=== PATIENT | female | born 1980 | race African-American/Black ===

== ENCOUNTER 2016-08-21 18:58 | Emergency (ER) | payer MEDICAID ==
[2016-08-21 18:48] LABS: URINE SOURCE CLEAN CATCH
[2016-08-21 18:52] LABS: URINE APPEARANCE CLEAR; URINE BILIRUBIN NEG (NEG); URINE BLOOD TRACE-INTACT (NEG); URINE COLOR YELLOW; URINE GLUCOSE NEG (NORM); URINE KETONE NEG (NEG); URINE LEUKOCYTE ESTERASE NEG (NEG); URINE NITRATE NEG (NEG); URINE PROTEIN NEG (NEG); URINE SPECIFIC GRAVITY 1.025 (1.003-1.035); URINE UROBILINOGEN 0.2 MG/DL (NORM)
[2016-08-21 18:54] LABS: MICRO INDICATED? YES
[2016-08-21 18:55] LABS: URINE BACTERIA NEG (NEG); URINE MUCUS PRESENT; URINE SQUAMOUS EPITHELIAL CELL FEW /[HPF]; URINE WBC 0-2 /[HPF] (0-5)
[~2016-08-21 18:58] MED LIST: BACTRIM DS TABL1 TA1 PO; NORVIR100 MG PO; REYATAZ150 MG PO; TRIUMEQ TABLET1 EACH; TRUVADA TABLET1 TA1 PO
[2016-08-26 05:06] LABS: CHLAMYDIA TRACH Not Detected (Not Detected); N GONOR Not Detected (Not Detected)
== END 2016-08-21 20:12 | disposition home or self-care (01) ==
LOC: SED 18:58
PROVIDERS: Nurse Practitioner Family
DX: N76.0 Acute vaginitis (principal); G47.30 Sleep apnea, unspecified; B20 Human immunodeficiency virus [HIV] disease
CPT/HCPCS: 81003; 84703; 87491; 87591; 87808; 87905; 96372; 99284; J0696